=== PATIENT | female | born 2000 | race Two or more races ===

== ENCOUNTER → 2023-12-24 | Emergency (ER) | payer SELFPAY ==
[~2023-12-24] VITALS: Ht 157.5 cm; Wt 61.2 kg
[~2023-12-24] MED LIST: IBUPROFEN 400 MG TABLET ONE
[2023-12-24] MEDS: IBUPROFEN 400 MG TABLET PO ONE (00:59)
[2023-12-24 02:14] VITALS: BP 132/78; TEMP 98.3; O2SAT 98
== END | disposition home or self-care (01) ==
LOC: ER 00:36
DX: S13.9XXA Sprain of joints and ligaments of unspecified parts of neck, initial encounter (principal); S09.8XXA Other specified injuries of head, initial encounter; S39.012A Strain of muscle, fascia and tendon of lower back, initial encounter; V43.62XA Car passenger injured in collision with other type car in traffic accident, initial encounter; Y93.89 Activity, other specified; Y92.488 Other paved roadways as the place of occurrence of the external cause; Y99.8 Other external cause status
CPT/HCPCS: 70450-TC; 72125-TC; 72131-TC